=== PATIENT | male | born 1975 | race Caucasian/White ===

== ENCOUNTER → 2016-08-06 | Outpatient (CLI) | payer OTHER ==
[~2016-08-06] MED LIST: 8 HOUR PAIN RE650 M1 PO; ACETAMINOPHEN PO; COLACE PO; CUBICIN INJ; CUBICIN IV; INDOMETHACIN50 MG PO; K-DUR20 ME2 PO; LASIX PO; LORTAB 7.5-3251 EACH PO; METOPROLOL TAR25 MG PO; MUCUS RELIEF600 M1 PO; NICOTINE TRANSD21 MG TOP; NO MEDICATIONS; NORCO 10-325 TA1 TAB PO; ROCEPHIN2 G/VIAL IV; TYL325 PO; VIBRAMYCIN100 M1 PO; [UNRECOGNIZED DRUG - REMARK]; [UNRECOGNIZED DRUG - REMARK]
== END | disposition home or self-care (01) ==
LOC: CBAR 10:34
DX: R78.81 Bacteremia (principal); I08.1 Rheumatic disorders of both mitral and tricuspid valves; R91.8 Other nonspecific abnormal finding of lung field; R06.02 Shortness of breath; R07.81 Pleurodynia; Z86.19 Personal history of other infectious and parasitic diseases; Z87.891 Personal history of nicotine dependence
CPT/HCPCS: 96374

== ENCOUNTER → 2016-08-24 | Outpatient (CLI) | payer OTHER | END | disposition home or self-care (01) | LOC: CSSDAY 10:15 | DX: A41.53 Sepsis due to Serratia (principal); Z79.2 Long term (current) use of antibiotics; Z86.19 Personal history of other infectious and parasitic diseases | CPT/HCPCS: 96374; J0696 ==

== ENCOUNTER → 2016-08-25 | Outpatient (CLI) | payer OTHER | END | disposition home or self-care (01) | LOC: CSSDAY 11:40 | DX: A41.53 Sepsis due to Serratia (principal); Z79.2 Long term (current) use of antibiotics; Z86.19 Personal history of other infectious and parasitic diseases | CPT/HCPCS: 96374; J0696 ==

== ENCOUNTER → 2016-08-26 | Outpatient (CLI) | payer OTHER | END | disposition home or self-care (01) | LOC: CSSDAY 11:11 | DX: A41.53 Sepsis due to Serratia (principal); Z79.2 Long term (current) use of antibiotics; Z86.19 Personal history of other infectious and parasitic diseases | CPT/HCPCS: 96374; J0696 ==

== ENCOUNTER → 2016-08-27 | Outpatient (CLI) | payer OTHER | END | disposition home or self-care (01) | LOC: CSSDAY 11:40 | DX: A41.53 Sepsis due to Serratia (principal); Z79.2 Long term (current) use of antibiotics; Z86.19 Personal history of other infectious and parasitic diseases | CPT/HCPCS: 96374; J0696 ==

== ENCOUNTER → 2016-08-28 | Outpatient (CLI) | payer OTHER | END | disposition home or self-care (01) | LOC: CSSDAY 11:21 | DX: A41.53 Sepsis due to Serratia (principal); Z79.2 Long term (current) use of antibiotics; Z86.19 Personal history of other infectious and parasitic diseases | CPT/HCPCS: 96374; J0696 ==

== ENCOUNTER 2017-02-22 11:38 | Emergency (ER) | payer OTHER ==
[~2017-02-22] VITALS: Ht 182.9 cm; Wt 77.1 kg
--- NOTE | ~2017-02-22 | CR124 ---
[facility] of [facility] RADIOLOGY TEXT RESULTS PATIENT: RUBEN BRYANT LOCATION: [place] : [birth year] UNIT #: [id number] AGE: [address]: John Cervantes SEX: M ORDER DR: [id number] [facility] [address] [facility]. [place], [place] [address] [id number] E MR#: [id number] Acc #: [id number] NAME: RUBEN BRYANT : 1975 SEX: M STUDY DATE/TIME: 02/22/2017 12:54 UNIT: [id number] ROOM: STUDY DESCRIPTION: CR Foot 2 Views Rt Attending Physician: John Cervantes Ordering Physician: John Cervantes Primary Care Physician: Primary Care Physician No MEDICAL IMAGING REPORT This report is preliminary unless electronic signature is present EXAM Right foot 3 views 02/22/2017 12:54 hours HISTORY Patient suffered laceration to bottom of foot stepping on glass and dirty pond water last night. COMPARISON None. FINDINGS AP, lateral and oblique views demonstrate no fracture, dislocation or radiopaque foreign body. There is a small amount of soft tissue gas in the plantar surface of the foot deep to the distal tarsal row likely in the midline based on positioning of a clamp on marker film AP. Accessory os navicularis noted. IMPRESSION 1. No fracture, dislocation or radiopaque foreign body. 2. There are small lucencies in the subcutaneous soft tissues of the plantar surface of the foot just deep to the distal tarsal row likely soft tissue gas and open wound. Dictated by... Edita Fan M.D. THIS IS AN ELECTRONICALLY VERIFIED REPORT Edita Fan M.D. at 02/23/2017 9:27 AM MARITZA/rico TD: 02/22/2017 19:50 [facility] RADIOLOGY TEXT RESULTS PATIENT: RUBEN BRYANT LOCATION: [place] : [birth year] UNIT #: [id number] AGE: [address]: John Cervantes SEX: M ORDER DR: JOB #: [id number] MEDICAL IMAGING REPORT Page 1 of 1 COPY
== END 2017-02-22 14:00 | disposition home or self-care (01) ==
LOC: CFTX 11:38 → CED 11:38 → CFTX 12:28
DX: S91.331A Puncture wound without foreign body, right foot, initial encounter (principal); I50.9 Heart failure, unspecified; F17.210 Nicotine dependence, cigarettes, uncomplicated; Z23 Encounter for immunization; Z86.19 Personal history of other infectious and parasitic diseases; W22.8XXA Striking against or struck by other objects, initial encounter; Y92.009 Unspecified place in unspecified non-institutional (private) residence as the place of occurrence of the external cause
CPT/HCPCS: 73620; 90471; 90715; 99283